=== PATIENT | female | born 1930 | race Caucasian/White ===

== ENCOUNTER 2017-01-14 16:45 | Emergency (ER) | payer MEDICARE, BC, MEDICAID ==
--- OUTSIDE RECORDS SUMMARY | 2017-01-14 18:28 | XMS REPORT | Continuity of Care Document ---
:1930 Author Organization [facility] ([facility]) Address [address] [place] [address] Phone [phone] Care Team Providers Name Role Phone Sharan Rucker Primary Care Provider [phone] Source Comments This disclosure is being made pursuant to the Care Everywhere program, applicable federal and state laws, and may not contain all informaitonavailable regarding this patient.[facility] ([facility]) Active Allergies and Adverse Reactions No Known Allergies Current Medications Prescription Sig. Disp. Refills Start Date End Date Status spironolactone 25 mg Take 25 mg by mouth Active tablet daily. diltiazem 60 mg Take 60 mg by mouth 2 Active tablet times daily. metoPROLol succinate Take 200 mg by mouth Active 200 mg XL tablet daily. gabapentin 300 mg Take 300 mg by mouth 2 Active capsule times daily. nortriptyline 10 mg Take 10 mg by mouth at Active capsule bedtime. carbidopa-levodopa Take 1 Tab by mouth 3 Active 25-100 mg per tablet times daily. At 0700, 1100, 1600 docusate 100 mg Take 100 mg by mouth 2 Active capsule times daily. pantoprazole 40 mg EC Take 40 mg by mouth Active tablet daily. calcium carbonate Take 1 Tab by mouth Active (500 mg Ca) 1250 mg daily. -vitamin D 200 unit per tablet rosuvastatin Take 10 mg by mouth Active (CRESTOR) 10 mg every evening. tablet warfarin 2 mg tablet Take 1 Tab by mouth 30 Tab 3 12/10/2013 Active every evening. Indications: CEREBRAL THROMBOEMBOLISM PREVENTION hydrOXYzine HCl 25 mg Take 1 Tab by mouth 30 Tab 3 12/10/2013 Active tablet every 6 hours as needed. Indications: URTICARIA HYDROmorphone 2 mg Take 1-2 Tabs by mouth 30 Tab 0 12/10/2013 Active tablet every 4 hours as needed. Indications: PAIN acetaminophen 325 mg Take 1-2 Tabs by mouth 60 Tab 3 12/10/2013 Active tablet every 4 hours as needed. Indications: PAIN Active Problems Problem Noted Date MRSA infection 12/07/2013 Hyponatremia 12/05/2013 Cellulitis 12/04/2013 DMII (diabetes mellitus, type 2) 11/20/2013 Acute ischemic stroke 11/19/2013 Overview: Left cerebellum, dorsal midbrain and right alonso radiata. 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 12/07/2013 Social History Tobacco Use Types Packs/Day Years Used Date Never Smoker Smokeless Tobacco: Never Used Tobacco Cessation:Counseling Given: Yes Comments: Alcohol Use Drinks/Week oz/Week Comments Yes occaisional Last Filed Vital Signs Vital Sign Reading Time Taken Blood Pressure 111/53 12/28/2013 11:34 AM CDT Pulse 86 12/28/2013 11:34 AM CDT Temperature 37 C (98.6 F) 12/28/2013 11:34 AM CDT Respiratory Rate 20 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 Height 1.6 m (5' 2.99") 12/28/2013 11:34 AM CDT Weight 82.2 kg (181 lb 3.5 oz) 12/28/2013 11:34 AM CDT Body Mass Index 32.11 12/28/2013 11:34 AM CDT Oxygen Saturation 96% 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 Plan of Care Health Maintenance Due Date Last Done Comments Hepatitis B Vaccine (1 of 3 - Primary Series) 1930 Tdap Vaccine 1941 DIABETIC: Microalbumin 1949 Td Vaccine 1949 Colonoscopy 04/25/1981 Zoster Vaccine 1991 Osteoporosis Screening (DXA Bone Density) 1996 Pneumococcal Vaccine (1 of 2 - PCV13) 1996 DIABETIC: Foot Exam 11/20/2013 DIABETIC: Retinal Eye Exam 11/20/2013 DIABETIC: Hemoglobin A1C 05/16/2014 11/16/2013 DIABETIC: Cholesterol 11/17/2014 11/17/2013 Diabetic: Hdl 11/17/2014 11/17/2013 Diabetic: Ldl 11/17/2014 11/17/2013 DIABETIC: Triglycerides 11/17/2014 11/17/2013 Influenza Vaccine: Seasonal (#1) 05/11/2016 Results from Last 3 Months Not on file
--- NOTE | 2017-01-14 18:33 | ERNOTE ---
Dyspnea - Date Date of Service: 01/14/17 - General Presenting Symptoms: shortness of breath Time Seen by Provider: 01/14/17 18:16 Source: patient, family, RN notes reviewed, old records Exam Limitations: no limitations - Immun/Allergies/Home Medications Immunizations: IMMUNIZATION HX Immunizations Up to Date Yes History of Influenza Vaccine Yes Hx Pneumococcal Vaccination Yes Allergies/Adverse Reactions: Allergies No Known Allergies Allergy (Verified 01/14/17 17:26) Home Medications: HOME MEDICATIONS Diltiazem HCl [Cardizem] 60 mg PO BID #0 tablet 12/01/13 [Last Taken 03/29/14] Docusate Sodium [Colace] 100 mg PO BID #0 capsule 12/01/13 [Last Taken 03/29/14] Metoprolol Succinate [Toprol Xl] 200 mg PO DAILY #0 tablet.sa 12/01/13 [Last Taken 08/02/15 06:30] Pantoprazole Sodium [Protonix] 40 mg PO DAILY@0700 #0 tablet. 12/01/13 [Last Taken 03/29/14] Calcium Carbonate/Vitamin D3 [Calcium 600 + Vit D 400 Tablet] 1 each PO DAILY [Last Taken Unknown] Ondansetron HCl [Zofran] 4 mg PO Q4H PRN 04/27/14 [Last Taken Unknown] Alendronate Sodium [Fosamax] 70 mg PO Q7D 05/21/14 [Last Taken Unknown] Calcitonin,[place],Synthetic [Miacalcin] 1 spray NS DAILY 05/21/14 [Last Taken Unknown] Acetaminophen [Tylenol] 325 - 650 mg PO Q4H PRN 07/31/15 [Last Taken Unknown] Atorvastatin Calcium [Lipitor] 20 mg PO DAILY 07/31/15 [Last Taken Unknown] Carboxymethylcellulos/Glycerin [Refresh Optive Eye Drops] 1 drop OP QID [Last Taken Unknown] Citalopram Hydrobromide [Celexa] 20 mg PO DAILY 07/31/15 [Last Taken Unknown] Furosemide [Lasix] 80 mg PO DAILY 07/31/15 [Last Taken Unknown] HYDROcodone/ACETAMINOPHEN [[place] 5-325 Tablet] 1 tab PO Q4H PRN 07/31/15 [Last Taken Unknown] Jantoven 2 mg PO DAILY 10/21/15 [Last Taken Unknown] Levothyroxine Sodium [Synthroid] 50 mcg PO DAILY 07/31/15 [Last Taken Unknown] Mirtazapine 0.5 tab PO HS 07/31/15 [Last Taken Unknown] Polyethylene Glycol 3350 [Miralax] 17 gm PO DAILY 07/31/15 [Last Taken Unknown] Potassium Chloride [Klor-Con M10] 10 meq PO BID 07/31/15 [Last Taken Unknown] Sennosides [Senokot] 17.2 mg PO DAILY 07/31/15 [Last Taken Unknown] Escitalopram Oxalate [Lexapro] 10 mg PO DAILY 01/14/17 [Last Taken Unknown] Sodium Chloride [[place]-128] 15 ml OP HS 01/14/17 [Last Taken Unknown] - History of Present Illness Narrative: Deanna is a 86 year old female brought to the ED from the [place] for shortness of breath. She noticed that she felt a little short of breath around bedtime last night. This resolved quickly, and she has not experienced any since. She reports that she is "just getting over a cold." It was felt that she should come here for evaluation. Treatment PRODUCER: none Initiating event: Reports: upper resp illness Associated Symptoms-Dyspnea: Reports: denies symptoms Prior Treatment: Denies: recently seen, currently on antibiotics Review of Systems - Review of Systems Constitutional: Present: recent illness. Absent: fever, chills, fatigue, malaise, decreased activity level EYE: Present: no symptoms reported ENT: Absent: nose congestion, nasal drainage, sore throat Respiratory: Absent: cough, orthopnea, wheezing Cardiology: Absent: chest pain, edema Gastrointestinal/Abdominal: Absent: nausea, abdominal pain Genitourinary: Present: no symptoms reported Musculoskeletal: Present: no symptoms reported Skin: Absent: rash, lesions Neurological: Absent: headache, dizziness/light-headedness Endocrine: Present: no symptoms reported Hematologic/Lymphatic: Present: no symptoms reported Psych: Present: no symptoms reported - Patient's Past Medical History Patient History - Medical: Cataracts, GERD, Other Patient History - Cardiac/Respiratory: Atrial Fibrillation, Hypertension, TIA Patient History - Cancer: No Hx of Cancer Patient History - Surgical Procedures: Cataracts, Cholecystectomy, Colonoscopy, Hysterectomy, Other Patient History - Other: None - Social History Living Situations: retirement Abuse History: No History of abuse Psych History: No pertinent hx Smoking Status: Never smoker Do you dip or chew tobacco: No Alcohol Use: none Drug Use: none - Immunizations Immunizations Up to Date: Yes Hx Pneumococcal Vaccination: Yes History of Influenza Vaccine: Yes Physical Exam - Physical Exam General Appearance: Present: wd/wn, alert, no apparent distress Eye Exam: Normal inspection: bilateral Ears, Nose, Throat: Present: normal ENT inspection Neck: Present: normal inspection, nontender, supple Respiratory: Present: no respiratory distress, normal breath sounds, no accessory muscle use, lungs clear Cardiovascular/Chest: Present: regular rate, rhythm, no murmur Extremity Exam: Present: normal inspection, no edema Neurological Exam: Present: alert, oriented, normal mood/affect Skin Exam: Present: normal color, warm/dry ED Progress - Vital Signs Patient's Vital Signs:: I have reviewed the patient's vital signs. Vital Signs: Vital Signs 01/14/17 01/14/17 01/14/17 17:18 17:43 18:23 Temperature 36.7 C 36.1 C L 36.7 C Pulse Rate 86 72 Respiratory 16 16 Rate Blood Pressure 167/72 149/71 O2 Sat by Pulse 96 97 Oximetry - Progress/Reassessment Chief Complaint: Dyspnea Progress:: Improved Plan - Plan Plan: Patient has been asymptomatic since the brief episode of dyspnea last evening. SpO2 currently 96-97% on room air. Exam unremarkable. Discussed f/u if symptoms return. Departure Clinical Impression: Dyspnea, unspecified Qualifiers: Dyspnea type: other forms of dyspnea Qualified Code(s): R06.09 - Other forms of dyspnea - Departure Disposition: [facility] Condition: Good Additional Instructions: Continue current medications and treatment Follow up or return to ER as needed Referrals: Sharan Rucker MD [Primary Care Provider] -
[2017-01-14 18:50] VITALS: BP 146/76
== END 2017-01-14 18:44 ==
LOC: ER 16:45
DX: R06.09 Other forms of dyspnea (principal); K21.9 Gastro-esophageal reflux disease without esophagitis; I10 Essential (primary) hypertension; I48.91 Unspecified atrial fibrillation; Z86.73 Personal history of transient ischemic attack (TIA), and cerebral infarction without residual deficits